=== PATIENT | male | born 1980 | race Caucasian/White ===

== ENCOUNTER 2019-05-06 06:37 | Emergency (ER) | payer SELFPAY ==
[~2019-05-06] VITALS: Ht 172.7 cm; Wt 107.0 kg
[2019-05-06] MEDS ORDERED: ONDANSETRON HCL 4MG/2ML INJ IV STA (06:57)
[2019-05-06] MEDS ORDERED: FAMOTIDINE 20MG/2ML VIAL IV STA (06:57)
[2019-05-06] MEDS ORDERED: SODIUM CHLORIDE 0.9% 1,000 ML IV ONE (06:57)
[2019-05-06] MEDS ORDERED: MORPHINE SULFATE 4 MG/ML CPJ (NOT FOR IM USE) IV ONE (07:15)
[2019-05-06 08:16] LABS: BASOPHILS % 0.3 % (0.0-2.0); EOSINOPHILS % 2.9 % (0.0-5.0); HEMATOCRIT. 41.2 % (42.0-52.0); HEMOGLOBIN. 14.2 g/dL (14.0-18.0); LYMPHOCYTES % 13.5 % (20.0-50.0); MEAN CORPUSCULAR HEMOGLOBIN 30.6 pg (28.0-32.0); MEAN CORPUSCULAR VOLUME 88.3 fL (80.0-94.0); MEAN PLATELET VOLUME 9.2 fl (7.4-10.4); MONOCYTES % 11.9 % (2.0-8.0); NEUTROPHILS % 71.4 % (40.0-76.0); PLATELET 231 x1000/uL (130-400); RED BLOOD CELL COUNT 4.66 mill/uL (4.7-6.1); RED CELL DISTRIBUTION WIDTH 12.5 % (11.6-14.6)
[2019-05-06 08:23] LABS: PROTHROMBIN TIME 10.5 sec (9.6-11.0)
[2019-05-06 08:32] LABS: CHLORIDE 109 mEq/L (98-107)
[2019-05-06 08:36] LABS: ETHANOL BLOOD < 10 mg/dL
[2019-05-06 08:47] LABS: COLOR URINE DARK YELLOW (YELLOW)
[2019-05-06 08:48] LABS: CLARITY URINE CLEAR (CLEAR); KETONES URINE TRACE (NEGATIVE); PROTEIN URINE NEGATIVE (NEGATIVE); SPECIFIC GRAVITY URINE 1.031 (1.005-1.030)
[2019-05-06 08:49] LABS: LEUKOCYTE ESTERASE URINE TRACE (NEGATIVE); NITRITE URINE NEGATIVE (NEGATIVE); OCCULT BLOOD URINE NEGATIVE (NEGATIVE)
[2019-05-06 09:27] LABS: *AMPHETAMINES SCREEN URINE NEGATIVE (NEGATIVE); *BARBITURATES SCREEN URINE NEGATIVE (NEGATIVE); *BENZODIAZEPINES SCREEN URINE NEGATIVE (NEGATIVE)
[2019-05-06 09:28] LABS: *COCAINE SCREEN URINE NEGATIVE (NEGATIVE); CANNABINOID URINE SCREEN PRESUMTIVE POSITIVE (NEGATIVE); METHADONE URINE SCREEN NEGATIVE (NEGATIVE); OPIATES URINE SCREEN NEGATIVE (NEGATIVE); PHENCYCLIDINE URINE SCREEN NEGATIVE (NEGATIVE)
[2019-05-06] MEDS ORDERED: KETOROLAC 30MG/ML VIAL IV ONE (09:45)
[2019-05-06] MEDS ORDERED: DICYCLOMINE HCL 10MG/ML 2ML AMP IM ONE (09:45)
[2019-05-06 11:35] VITALS: BP 122/69
== END 2019-05-06 11:38 | disposition home or self-care (01) ==
LOC: ER 06:37
DX: R10.13 Epigastric pain (principal); J06.9 Acute upper respiratory infection, unspecified; F12.90 Cannabis use, unspecified, uncomplicated; K76.9 Liver disease, unspecified
CPT/HCPCS: 36415; 71045; 80053; 80305; 80320; 81003; 83690; 85025; 85610; 96372; 96374; 96375; 99284; J0500; J2270; J2405; J3490; J7030; Z7610; G0480

== ENCOUNTER 2019-05-12 18:16 | Emergency (ER) | payer SELFPAY ==
[~2019-05-12] VITALS: Ht 172.7 cm; Wt 110.0 kg
[2019-05-12] MEDS ORDERED: TETANUS, DIPHTHERIA, PERTUSSIS VAC/PF 0.5ML (>7YR OLD) IM ONE (21:15)
[2019-05-12] MEDS ORDERED: MORPHINE SULFATE 10 MG/ML CPJ IM ONE (21:26)
[2019-05-12 22:07] VITALS: BP 135/82
== END 2019-05-12 23:45 | disposition home or self-care (01) ==
LOC: ER 18:16
DX: S61.311A Laceration without foreign body of left index finger with damage to nail, initial encounter (principal); F12.10 Cannabis abuse, uncomplicated; Z88.6 Allergy status to analgesic agent; W26.0XXA Contact with knife, initial encounter; Y93.89 Activity, other specified; Y92.89 Other specified places as the place of occurrence of the external cause; Y99.8 Other external cause status
CPT/HCPCS: 12001; 90471; 90715; 96372; 99283; J2270; Z7610

== ENCOUNTER 2022-04-29 13:07 | Emergency (ER) | payer MEDICAID ==
[~2022-04-29] VITALS: Ht 172.7 cm; Wt 112.0 kg
[2022-04-29 13:34] VITALS: BP 145/86
[2022-04-29] MEDS ORDERED: KETOROLAC 60MG/2ML VIAL IM ONE (14:30)
[2022-04-29] MEDS ORDERED: IBUP-2029 MT (15:14)
[2022-04-29] MEDS ORDERED: HYDROCODONE/ACETAMINOPHEN 5/325MG TABLET PO ONE (15:30)
== END 2022-04-29 15:59 | disposition home or self-care (01) ==
LOC: ER 13:13
DX: M79.89 Other specified soft tissue disorders (principal); F12.10 Cannabis abuse, uncomplicated
CPT/HCPCS: 73110; 73130; 99284; J1885

== ENCOUNTER 2022-06-07 16:09 | Emergency (ER) | payer MEDICAID, OTHER ==
[~2022-06-07 16:09] MED LIST: IBUP-2029 MT
== END 2022-06-07 18:16 | disposition left against medical advice (07) ==
LOC: ER 16:09
DX: Z53.21 Procedure and treatment not carried out due to patient leaving prior to being seen by health care provider (principal)

== ENCOUNTER 2024-09-25 07:51 | Inpatient (IN) | payer MEDICAID, OTHER ==
[~2024-09-25] VITALS: Ht 177.8 cm; Wt 109.3 kg
[2024-09-25] MEDS: SODIUM CHLORIDE 0.9% 1,000 ML IV ONE (08:16)
[2024-09-25] MEDS: NITROGLYCERIN 0.4MG TABLET SL SL PRN (08:16)
[2024-09-25] MEDS: MORPHINE SULFATE 4 MG/ML INJ (FOR IV/IM USE) IV STA (08:16)
[2024-09-25 08:48] LABS: BASOPHILS % 0.6 % (0.0-2.0); EOSINOPHILS % 6.2 % (0.0-5.0); HEMATOCRIT. 46.1 % (42.0-52.0); HEMOGLOBIN. 15.7 g/dL (14.0-18.0); LYMPHOCYTES % 12.4 % (20.0-50.0); MEAN CORPUSCULAR HEMOGLOBIN 30.7 pg (28.0-32.0); MEAN CORPUSCULAR HGB CONC 34.1 g/dL (31.0-37.0); MONOCYTES % 9.3 % (2.0-8.0); NEUTROPHILS % 71.5 % (40.0-76.0); PLATELET 222 x1000/uL (130-400); RED BLOOD CELL COUNT 5.13 mill/uL (4.7-6.1); RED CELL DISTRIBUTION WIDTH 13.3 % (11.6-14.6); WHITE BLOOD COUNT 10.9 x1000/uL (4.5-11.0)
[2024-09-25 08:52] LABS: CHLORIDE 108 mEq/L (98-107); POTASSIUM 4.1 mEq/L (3.5-5.1); SODIUM 139 mEq/L (136-145)
[2024-09-25 08:53] LABS: CARBON DIOXIDE 23 mEq/L (21-32)
[2024-09-25 08:54] LABS: CALCIUM 9.8 mg/dL (8.7-10.4)
[2024-09-25] MEDS: HEPARIN 5000 UNITS/ML VIAL IV NR (08:57)
[2024-09-25 08:58] LABS: CREATININE 0.9 mg/dL (0.6-1.3); GLUCOSE 123 mg/dL (70-105); UREA NITROGEN BLOOD 11 mg/dL (9-23)
[2024-09-25] MEDS: MORPHINE SULFATE 2 MG/ML INJ (NOT FOR IM USE) IV NR (08:58)
[2024-09-25 09:00] LABS: TROPONIN I HIGH SENSITIVITY 21 ng/L (3.0-53)
[2024-09-25 09:15] LABS: ETHANOL BLOOD < 10 mg/dL (<10)
[2024-09-25 10:29] LABS: D-DIMER < 0.19 mg/L FEU (<0.50); PARTIAL THROMBOPLASTIN TIME 54.4 sec (23.4-31.0); PROTHROMBIN TIME 10.7 sec (9.6-11.0)
[2024-09-25 10:50] LABS: TROPONIN I HIGH SENSITIVITY 176 ng/L (3.0-53)
[2024-09-25] MEDS: ONDANSETRON HCL 4MG/2ML INJ IV ONE (10:55)
[2024-09-25] MEDS ORDERED: HEPARIN BOLUS PRN aPTT <30 IV ×2 (11:00)
[2024-09-25] MEDS ORDERED: HEPARIN BOLUS PRN aPTT 30-44 IV ×2 (11:00)
[2024-09-25] MEDS: MORPHINE SULFATE 4 MG/ML INJ (FOR IV/IM USE) IV ONE (11:02)
[2024-09-25] MEDS: HEPARIN 25,000 UNITS PREMIX 250 ML IV SCH (11:15)
[2024-09-25] MEDS ORDERED: LIDOCAINE HCL 1% 20ML VIAL ONE (11:18)
[2024-09-25] MEDS ORDERED: IODIXANOL 320MG/ML 100 ML BOTTLE IV ONE ×2 (11:18→12:16)
[2024-09-25] MEDS ORDERED: HEPARIN 1000 UNITS/ML 10ML ONE ×2 (11:18→12:09)
[2024-09-25] MEDS ORDERED: FENTANYL CITRATE/PF 50MCG/ML 2ML VIAL ONE (11:40)
[2024-09-25] MEDS ORDERED: MIDAZOLAM HCL 2 MG/2 ML VIAL ONE (11:40)
[2024-09-25] MEDS ORDERED: CLOPIDOGREL 75MG TABLET ONE (12:24)
[2024-09-25] MEDS ORDERED: ACETAMINOPHEN 325MG TABLET PO PRN ×2 (12:30→13:30)
[2024-09-25] MEDS ORDERED: ZOLPIDEM TARTRATE 5MG TABLET PO PRN (12:30)
[2024-09-25] MEDS ORDERED: IPRATROPIUM/ALBUTEROL 0.5-3(2.5)MG/3ML NEB NEB PRN (12:30)
[2024-09-25] MEDS ORDERED: ONDANSETRON HCL 4MG/2ML INJ IV PRN (12:30)
[2024-09-25] MEDS ORDERED: CLONIDINE 0.1MG TABLET PO PRN (12:30)
[2024-09-25] MEDS ORDERED: ATROPINE SULFATE 1MG/10ML SYR IV PRN (13:30)
[2024-09-25] MEDS: SODIUM CHLORIDE 0.45% 1,000 ML IV SCH (13:45)
[2024-09-25] MEDS ORDERED: NALOXONE HCL 0.4MG/ML VIAL IV PRN (15:00)
[2024-09-25] MEDS: HYDROCODONE/ACETAMINOPHEN 5/325MG TABLET PO PRN (15:14)
[2024-09-25 16:22] VITALS: BP 147/95; PULSE 74; RESP 18; TEMP 36.8; O2SAT 96
[2024-09-25 16:41] VITALS: BP 147/95; PULSE 74; RESP 18; TEMP 36.8
[2024-09-25] MEDS: SODIUM CHLORIDE 0.9% 1,000 ML IV SCH (18:31)
[2024-09-25 18:37] LABS: TROPONIN I HIGH SENSITIVITY 8843 ng/L (3.0-53)
[2024-09-25 20:00] VITALS: BP 129/58; PULSE 68; RESP 17; TEMP 36.6; O2SAT 93
[2024-09-25] MEDS: ATORVASTATIN CALCIUM 40MG TABLET PO SCH (21:06)
[2024-09-25] MEDS: CARVEDILOL 3.125 MG TABLET PO SCH (21:06)
[2024-09-25] MEDS: SODIUM CHLORIDE 0.9% 3ML FLUSH IVF SCH (21:06)
[2024-09-26] VITALS: BP 131/84; PULSE 70; RESP 16; TEMP 36.8; O2SAT 97
[2024-09-26 01:00] LABS: TROPONIN I HIGH SENSITIVITY 15563 ng/L (3.0-53)
[2024-09-26 01:06] LABS: CLARITY URINE CLEAR (CLEAR); COLOR URINE YELLOW (YELLOW); GLUCOSE URINE NEGATIVE (NEGATIVE); KETONES URINE 2+ (NEGATIVE); LEUKOCYTE ESTERASE URINE NEGATIVE (NEGATIVE); NITRITE URINE NEGATIVE (NEGATIVE); OCCULT BLOOD URINE NEGATIVE (NEGATIVE); PROTEIN URINE NEGATIVE (NEGATIVE); SPECIFIC GRAVITY URINE 1.031 (1.005-1.030)
[2024-09-26 01:17] LABS: *AMPHETAMINES SCREEN URINE NEGATIVE (NEGATIVE); *BARBITURATES SCREEN URINE NEGATIVE (NEGATIVE); *BENZODIAZEPINES SCREEN URINE PRESUMPTIVE POSITIVE (NEGATIVE); *COCAINE SCREEN URINE NEGATIVE (NEGATIVE); CANNABINOID URINE SCREEN PRESUMPTIVE POSITIVE (NEGATIVE); ECSTASY MDMA SCREEN URINE NEGATIVE (NEGATIVE); METHADONE URINE SCREEN NEGATIVE (NEGATIVE); OPIATES URINE SCREEN PRESUMPTIVE POSITIVE (NEGATIVE); PHENCYCLIDINE URINE SCREEN NEGATIVE (NEGATIVE)
[2024-09-26] MEDS: MORPHINE SULFATE 2 MG/ML INJ (NOT FOR IM USE) IV PRN (01:34)
[2024-09-26 03:49] VITALS: BP 119/81; PULSE 68; RESP 18; TEMP 36.8; O2SAT 93
[2024-09-26 04:43] LABS: CHLORIDE 110 mEq/L (98-107); POTASSIUM 3.7 mEq/L (3.5-5.1); SODIUM 140 mEq/L (136-145)
[2024-09-26 04:44] LABS: CALCIUM 9.1 mg/dL (8.7-10.4); CARBON DIOXIDE 24 mEq/L (21-32)
[2024-09-26 04:49] LABS: CREATININE 0.6 mg/dL (0.6-1.3); GLUCOSE 113 mg/dL (70-105); UREA NITROGEN BLOOD 8 mg/dL (9-23)
[2024-09-26 06:41] LABS: BASOPHILS % 0.3 % (0.0-2.0); EOSINOPHILS % 1.1 % (0.0-5.0); HEMOGLOBIN. 13.6 g/dL (14.0-18.0); LYMPHOCYTES % 14.5 % (20.0-50.0); MEAN CORPUSCULAR HEMOGLOBIN 29.8 pg (28.0-32.0); MEAN CORPUSCULAR HGB CONC 33.1 g/dL (31.0-37.0); MEAN CORPUSCULAR VOLUME 90.1 fL (80.0-94.0); MEAN PLATELET VOLUME 9.9 fl (7.4-10.4); MONOCYTES % 9.6 % (2.0-8.0); NEUTROPHILS % 74.5 % (40.0-76.0); PLATELET 187 x1000/uL (130-400); RED BLOOD CELL COUNT 4.55 mill/uL (4.7-6.1); RED CELL DISTRIBUTION WIDTH 13.1 % (11.6-14.6); WHITE BLOOD COUNT 11.4 x1000/uL (4.5-11.0)
[2024-09-26 08:00] VITALS: BP 125/60; PULSE 69; RESP 20; TEMP 36.7; O2SAT 95
[2024-09-26] MEDS: ASPIRIN 81MG EC TABLET PO SCH (08:46)
[2024-09-26] MEDS: CLOPIDOGREL 75MG TABLET PO SCH (08:46)
[2024-09-26] MEDS: PANTOPRAZOLE SODIUM 40 MG/VIAL IV SCH (08:47)
[2024-09-26 12:00] VITALS: BP 136/81; PULSE 70; RESP 20; TEMP 36.7; O2SAT 94
[2024-09-26 14:09] VITALS: BP 125/84; PULSE 71; TEMP 98.3; O2SAT 98
[2024-09-26] MEDS ORDERED: COR3 PO (15:46)
[2024-09-26] MEDS ORDERED: NITR0.4T49 SL (15:46)
[2024-09-26] MEDS ORDERED: ASPI-1406 PO (15:46)
[2024-09-26] MEDS ORDERED: LIP40 PO (15:46)
[2024-09-26] MEDS ORDERED: CLOP-31 PO (15:46)
== END 2024-09-26 16:05 | disposition home or self-care (01) | DRG 175 ==
LOC: ER 07:51 → 3WST 11:29 → EDBEDREQ 11:32 → EDBEDREQTM 11:32 → EDBEDREQSVC 11:32
PROVIDERS: ADMIT Internal Medicine; ATTEND Internal Medicine
PROC: 027034Z Dilation of Coronary Artery, One Artery with Drug-eluting Intraluminal Device, Percutaneous Approach (ICD-10-PCS; principal; 2024-09-25)
PROC: 4A023N7 Measurement of Cardiac Sampling and Pressure, Left Heart, Percutaneous Approach (ICD-10-PCS; 2024-09-25)
PROC: B211YZZ Fluoroscopy of Multiple Coronary Arteries using Other Contrast (ICD-10-PCS; 2024-09-25)
PROC: B215YZZ Fluoroscopy of Left Heart using Other Contrast (ICD-10-PCS; 2024-09-25)
DX: I25.110 Atherosclerotic heart disease of native coronary artery with unstable angina pectoris (principal); E66.9 Obesity, unspecified; F41.9 Anxiety disorder, unspecified; I10 Essential (primary) hypertension; Z72.0 Tobacco use; Z88.8 Allergy status to other drugs, medicaments and biological substances; Z68.34 Body mass index [BMI] 34.0-34.9, adult
CPT/HCPCS: 36415; 71045; 80048; 80305; 80320; 81003; 83880; 84484; 85025; 85379; 86850; 86900; 92941; 93005; 93306; 93458; 99291; A4606; C1725; C1769; C1874; C1887; C1893; J1644; J2250; J2270; J2405; J2470; J3010; J3490; J7030; Q9967; G0480